=== PATIENT | male | born 2000 | race Caucasian/White ===

== ENCOUNTER 2019-04-01 19:23 | Emergency (ER) | payer OTHER, MEDICAID, SELFPAY ==
[2019-04-01 19:29] VITALS: BP 169/96; PULSE 95; RESP 27; TEMP 36.8; O2SAT 100; BMI 48.4
--- NOTE | 2019-04-01 19:35 | DI.RAD.S_ITS ---
PROCEDURE: XR CHEST 2V INDICATIONS: chest pain TECHNIQUE: 2 views of the chest were acquired. COMPARISON: None. FINDINGS: Surgical changes and devices: None. Lungs and pleura: Lungs are clear. No pleural effusions or pneumothorax. Mediastinum: Mediastinal contours are normal. Heart size is normal. Bones and chest wall: No suspicious bony abnormalities. Soft tissues appear unremarkable. IMPRESSION: No acute cardiopulmonary disease. Dictated by: Carisa Sen M.D. on 04/01/2019 at 20:46 Approved by: Carisa Sen M.D. on 04/01/2019 at 20:46
[2019-04-01] MEDS: KETOROLAC 60 MG/2 ML VIAL 15 MG IV (19:39)
[2019-04-01] MEDS: SODIUM CHLORIDE 0.9% 1,000 ML 150 ML IV (19:40)
[2019-04-01] MEDS: ASPIRIN 81 MG TAB 324 MG PO (19:40)
[2019-04-01 20:00] VITALS: BP 164/79; PULSE 79; RESP 23; O2SAT 99
[2019-04-01 20:07] LABS: Add Manual Diff / Slide Review NO; Basophils Absolute Auto 100 /uL (0-100); Eosinophils Absolute Auto 200 /uL (0-450); Eosinophils Percent Auto 1.4 % (2-4); Hematocrit 45.2 % (41-53); Hemoglobin 15.4 g/dL (13.5-17.5); Lymphocytes Absolute Auto 3200 /uL (1100-4500); Mean Corpuscular HGB Conc 34.1 % (30-36); Mean Corpuscular Hemoglobin 28.2 PG (26-34); Mean Corpuscular Volume 82.6 fL (80-100); Monocytes Absolute Auto 800 /uL (0-900); Monocytes Percent Auto 7.3 % (3-14); Neutrophils Absolute Auto 7200 /uL (1500-7000); Neutrophils Percent Auto 62.3 % (50-75); Platelet Count 329 X10^3/uL (150-400); Red Blood Cell Count 5.47 X10^6/uL (4.5-5.9); Red Cell Distribution Width 13.6 % (11.6-14.8); White Blood Cell Count 11.6 X10^3/uL (4.5-11.0)
[2019-04-01 20:16] LABS: D Dimer < 200 ng/mL (<230)
[2019-04-01 20:18] LABS: Alanine Aminotransferase 46 IU/L (21-72); Albumin 4.6 g/dL (3.5-5.0); Albumin Globulin Ratio 1.4 (1.0-2.8); Alkaline Phosphatase 87 U/L (38-126); Aspartate Aminotransferase 37 IU/L (17-59); Bilirubin Total 0.5 mg/dL (0.2-1.3); Blood Urea Nitrogen 14 mg/dL (9-20); Calcium 9.7 mg/dL (8.4-10.2); Carbon Dioxide 27 mmol/L (22-32); Chloride 107 mmol/L (98-107); Creatine Kinase 226 U/L (55-170); Estimated Glomerular Filt Rate > 60.0 mL/min (>60); Globulin 3.3 g/dL (1.7-4.1); Glucose 105 mg/dL (70-100); HEMOLYSIS 28 (0-50); Lipase 114 U/L (23-300); Potassium 4.3 mmol/L (3.4-5.1); Sodium 143 mmol/L (137-145); Total Protein 7.9 g/dL (6.3-8.2)
[2019-04-01 20:29] LABS: Troponin I < 0.012 ng/mL (0.01-0.034)
[2019-04-01 20:30] VITALS: BP 161/82; PULSE 82; RESP 24; O2SAT 98
[2019-04-01 20:33] LABS: CKMB % Relative Index 0.7 % (1.5-5.0); Creatine Kinase MB 1.53 ng/mL (<2.37)
[2019-04-01 21:00] VITALS: BP 161/81; PULSE 86; RESP 20; O2SAT 97
[2019-04-01 21:34] VITALS: BP 163/79; PULSE 76; RESP 23; O2SAT 96
--- NOTE | 2019-04-02 01:03 | ED_ITS ---
HPI - Chest Pain General Chief Complaint: Chest Pain Stated Complaint: CHEST PAIN LEFT SIDE Time Seen by Provider: 04/01/19 19:25 Source: patient and family Mode of arrival: ambulatory Limitations: no limitations History of Present Illness HPI narrative: 18-year-old male nonsmoker, otherwise healthy presents with a chief complaint of left anterior sharp and stabbing chest pain that started last night. He states the pain is worse with motion and big deep breath. He denies associated symptoms such as dizziness, weakness or lightheadedness. He denies any hemoptysis, shortness of breath or nausea, vomiting, diaphoresis or worsening with exertion. He denies any injury but does state he went to a [employer] [place] for the 1st time a few days ago. Finally he denies any history of blood clot, recent travel, surgery or cancer. He states that he thinks the pain started at rest while he was under a lot of stress. MD complaint: chest pain Onset (ago): day(s) Duration: constant Pain location: left chest Severity: moderate Quality: sharp Pain radiation: none Relieving factors: nothing Exacerbating factors: inspiration, palpation and movement Treatments prior to arrival chest pain: none Related Data Allergies Allergy/AdvReac Type Severity Reaction Status Date / Time No Known Drug Allergies Allergy Verified 04/01/19 19:31 Review of Systems Constitutional Denies chills, Denies fever(s), Denies lethargy and Denies weakness Eyes Denies change in vision, Denies eye discharge, Denies irritation and Denies loss of vision ENT Ears, Nose, Mouth, and Throat: Denies change in voice, Denies neck pain and Denies sore throat Cardiovascular Reports chest pain, Denies irregular heart rhythm, Denies lightheadedness, Denies palpitations, Denies dyspnea, Denies dyspnea on exertion and Denies orthopnea Respiratory Denies cough, Denies dyspnea, Denies dyspnea on exertion and Denies wheezing Gastrointestinal Gastrointestinal: Denies abdominal pain, Denies change in bowel habits, Denies diarrhea, Denies nausea and Denies vomiting Genitourinary Denies hematuria, Denies flank pain, Denies urinary incontinence and Denies urinary urgency Musculoskeletal Denies neck pain Integumentary/Breasts Denies pruritus, Denies erythema, Denies rash and Denies wounds Neurologic Denies confusion, Denies loss of vision and Denies weakness Psychiatric Denies anxiety, Denies confusion, Denies depression, Denies homicidal ideation and Denies suicidal ideation Endocrine Denies palpitations Hematologic/Lymphatic Denies easy bruising Allergic/Immunologic Denies wheezing PFSH Social History Smoking Status: Current some day smoker Social History Smoking Status: Current some day smoker Exam Narrative Exam Narrative: GENERAL: 18-year-old male, morbidly obese, resting comfortably but appears a bit anxious HEAD: Atraumatic. Normocephalic. No temporal or scalp tenderness. EYES: Pupils equal round and reactive. Extraocular motions intact. No scleral icterus. No injection or drainage. ENT: Nose without bleeding, purulent drainage or septal hematoma. Throat without erythema, tonsillar hypertrophy or exudate. Uvula midline. Airway patent. NECK: Trachea midline. No JVD or lymphadenopathy. Supple, nontender, no meningeal signs. CARDIOVASCULAR: Regular rate and rhythm without murmurs, gallops, or rubs. The left anterior chest pain worse with palpation and inspiration RESPIRATORY: Clear to auscultation. Breath sounds equal bilaterally. No wheezes, rales, or rhonchi. GASTROINTESTINAL: Abdomen soft, non-tender, nondistended. No hepato- splenomegaly, or palpable masses. No guarding. EXTREMITIES: No clubbing, cyanosis, or edema. No joint tenderness, effusion, or edema noted. BACK: Nontender without deformity or crepitance. No flank tenderness. NEURO: AOx3. SKIN: No rash or erythema. Initial Vital Signs Initial Vital Signs: Vital Signs Temperature 98.3 F 04/01/19 19:29 Pulse Rate 95 H 04/01/19 19:29 Respiratory Rate 27 H 04/01/19 19:29 Blood Pressure 169/96 H 04/01/19 19:29 Pulse Oximetry 100 04/01/19 19:29 Scores HEART Score Heart Score history: Slightly Suspicious Heart Score EKG: Normal Heart Score Age: < 45 years old Heart Score risk factors: 1-2 risk factors Heart Score troponin: < or = to normal limit Heart Score Total: 1 Course Orders Ordered: ED Orders 04/01/19 19:35 XR chest 2V Stat 04/01/19 19:55 Complete Blood Count AUTO DIFF Stat Comprehensive Metabolic Panel Stat D Dimer Stat Lipase Stat Troponin & CK Cardiac Panel Stat Discontinued Medications Aspirin (Aspirin Chew) 324 mg PO NOW ONE Stop: 04/01/19 19:36 Last Admin: 04/01/19 19:40 Dose: 324 mg Sodium Chloride (Normal Saline 0.9%) 1,000 mls @ 150 mls/hr IV CONT JAVI Last Infusion: 04/01/19 21:47 Dose: 0 mls/hr Admin: 04/01/19 19:40 Dose: 150 mls/hr Ketorolac Tromethamine (Toradol) 15 mg IV NOW ONE Stop: 04/01/19 19:36 Last Admin: 04/01/19 19:39 Dose: 15 mg Vital Signs - 8 hr 04/01/19 19:29 04/01/19 20:00 04/01/19 20:30 Temperature 98.3 F Pulse Rate 95 H 79 82 Respiratory Rate 27 H 23 24 Blood Pressure 169/96 H Blood Pressure [Right Arm] 164/79 H 161/82 H Pulse Oximetry 100 99 98 04/01/19 21:00 04/01/19 21:34 Temperature Pulse Rate 86 76 Respiratory Rate 20 23 Blood Pressure Blood Pressure [Right Arm] 161/81 H 163/79 H Pulse Oximetry 97 96 MDM - Chest Pain Lab Data Result diagrams: 04/01/19 19:55 04/01/19 19:55 Lab Results 04/01/19 04/01/19 04/01/19 Range/Units 19:55 19:55 19:55 WBC 11.6 H (4.5-11.0) X10^3/uL RBC 5.47 (4.5-5.9) X10^6/uL Hgb 15.4 (13.5-17.5) g/dL Hct 45.2 (41-53) % MCV 82.6 (80-100) fL MCH 28.2 (26-34) PG MCHC 34.1 (30-36) % RDW 13.6 (11.6-14.8) % Plt Count 329 (150-400) X10^3/uL Neut % (Auto) 62.3 (50-75) % Lymph % (Auto) 28.0 (25-40) % [place] % (Auto) 7.3 (3-14) % Eos % (Auto) 1.4 L (2-4) % Baso % (Auto) 1.0 (0-2) % Neut # (Auto) 7200 H (3633-0996) /uL Lymph # (Auto) 3200 (7216-2316) /uL [place] # (Auto) 800 (0-900) /uL Eos # (Auto) 200 (0-450) /uL Baso # (Auto) 100 (0-100) /uL D-Dimer < 200 (<230) ng/mL Sodium 143 (137-145) mmol/L Potassium 4.3 (3.4-5.1) mmol/L Chloride 107 (98-107) mmol/L Carbon Dioxide 27 (22-32) mmol/L BUN 14 (9-20) mg/dL Creatinine 0.70 (0.66-1.25) mg/dL Estimated GFR > 60.0 (>60) mL/min BUN/Creatinine Ratio 20.0 (6-22) Glucose 105 H (70-100) mg/dL Calcium 9.7 (8.4-10.2) mg/dL Total Bilirubin 0.5 (0.2-1.3) mg/dL AST 37 (17-59) IU/L ALT 46 (21-72) IU/L Alkaline Phosphatase 87 (38-126) U/L Total Creatine Kinase 226 H (55-170) U/L CK-MB (CK-2) 1.53 (<2.37) ng/mL CK-MB (CK-2) Rel Index 0.7 L (1.5-5.0) % Troponin I < 0.012 (0.01-0.034) ng/mL Total Protein 7.9 (6.3-8.2) g/dL Albumin 4.6 (3.5-5.0) g/dL Globulin 3.3 (1.7-4.1) g/dL Albumin/Globulin Ratio 1.4 (1.0-2.8) Lipase 114 (23-300) U/L Urine Dip Bedside Urine Glucose Negative Bedside Urine Bilirubin - Negative Bedside Urine Ketone - Negative Urine Specific [place] 1.025 Bedside Urine Occult Blood - Negative Bedside Urine pH 6.0 Bedside Urine Protein +/- 15 Bedside Urine Urobilinogen - Negative Bedside Urine Nitrite - Negative Bedside Urine Leukocytes - Negative Esterase Imaging Data Chest x-ray: Radiologist's impression: [address] [address] XRay Report Signed Patient: Vidal Sharp WMR#: [id number] : 2000Acct:[id number] Age/Sex: 18 / MDate of Service: 04/01/19 Loc: ED Accession Number: [id number] Procedure: XR chest 2V Ordering Provider: Charles Collier D.O. PROCEDURE: XR CHEST 2V INDICATIONS: chest pain TECHNIQUE: 2 views of the chest were acquired. COMPARISON: None. FINDINGS: Surgical changes and devices: None. Lungs and pleura: Lungs are clear. No pleural effusions or pneumothorax. Mediastinum: Mediastinal contours are normal. Heart size is normal. Bones and chest wall: No suspicious bony abnormalities. Soft tissues appear unremarkable. IMPRESSION: No acute cardiopulmonary disease. Dictated by: Carisa Sen M.D. on 04/01/2019 at 20:46 Approved by: Carisa Sen M.D. on 04/01/2019 at 20:46 ECG Data Attestation: I personally reviewed and interpreted this ECG as follows: Prior ECG tracings: not available for review Interpretation: EKG is normal sinus rhythm and free of any signs of ischemia or ectopy. No ST segmental elevation or depression. No T wave inversions MDM Narrative Medical decision making narrative: Multiple etiologies for patient's symptoms considered including: [Cardiac ischemia versus pulmonary embolism versus pericarditis versus costochondritis versus other] Patient's symptoms improved or duration of stay with above-stated therapies. Findings and discharge diagnosis discussed with patient/family followed by verbalization of understanding Return precautions discussed with patient/family whom verbalize understanding. Discharge Plan Departure Patient Disposition: Home Clinical Impression: Atypical chest pain Discharge Date/Time: 04/01/19 22:03 Interventions: ED Discharge Assessment Last Done: 04/01/19 21:48 Instructions: DI for Atypical Chest Pain Activity Restrictions/Additional Instructions: *You have been diagnosed with [ atypical chest pain ] *What to do: *Take medications as directed: tylenol or motrin for pain *Follow up with your primary care provider in 2-3 days, call for an appointment. Let them know you were seen in the Emergency Department and that we ask that you be seen in follow up *Return to ER if you should have any new, worsening or concerning symptoms Referrals: [facility] [Outside]
== END 2019-04-01 22:03 | disposition home or self-care (01) ==
PROVIDERS: Emergency Provider Emergency Medicine; Family Provider Family Medicine
DX: R07.89 Other chest pain (principal)
CPT/HCPCS: 36591; 71046; 80053; 81003; 82550; 82553; 83690; 84484; 85025; 85379; 93005; 93010; 96361; 96374; 99283; 99285; J1885

== ENCOUNTER → 2021-10-19 13:22 | Outpatient (CLI) | payer OTHER, MEDICAID, SELFPAY ==
[2021-10-19 15:40] LABS: COVID19 -Nasal RAPID POSITIVE (Negative)
== END ==
PROVIDERS: Referring Provider Student in an Organized Health Care Education/Training Program; Visit Provider Student in an Organized Health Care Education/Training Program
DX: U07.1 COVID-19 (principal); Z20.822 Contact with and (suspected) exposure to COVID-19
CPT/HCPCS: 87635